=== PATIENT | female | born 1955 | race Caucasian/White ===

== ENCOUNTER 2019-12-18 14:50 | Outpatient (CLI) | payer OTHER, SELFPAY ==
--- NOTE | 2019-12-18 14:55 | MM_ITS ---
WS: [id number] BILATERAL DIGITAL SCREENING MAMMOGRAPHY WITH CAD CLINICAL INFORMATION: SCREENING HISTORY: Screening mammogram. No current complaints. COMPARISON: TECHNIQUE: Bilateral CC and MLO views. FINDINGS: Scattered fibroglandular densities bilaterally. No suspicious focal mass, asymmetry, calcifications, or architectural distortion. No evidence of malignancy. Surgical clips right axilla. A few punctate a nd lucent centered calcifications. MM/[place] [id number] IMPRESSION: BI-RADS: 2-Benign FOLLOW UP: 1 Year Follow-up Recommend return to annual screening mammography.
== END 2019-12-18 14:51 | disposition home or self-care (01) ==
LOC: RADSHAW 14:53
PROVIDERS: PCP Family Medicine; Visit Provider Family Medicine
DX: Z12.31 Encounter for screening mammogram for malignant neoplasm of breast (principal)
CPT/HCPCS: 77067

== ENCOUNTER 2020-04-10 14:41 | Outpatient (CLI) | payer OTHER, SELFPAY ==
--- NOTE | 2020-04-10 14:48 | USCV_ITS ---
Rut Sanders Age: 65 Gender: F : 1955 Exam Date: 04/10/2020 14:58 Ordering Phys: See Meza MD Technologist: Patti Chong [place] [facility] [place]: Carotid artery stenosis Risk Factors: Unknown Previous Vascular Surgery: Stent right ICA Right Brachial BP: / Left Brachial BP: / Right Left Velocity (cm/s) Spectral Plaque Velocity (cm/s) Spectral Plaque Syst/Diast Broadening Syst/Diast Broadening 102.50/23.20 Prox CCA 72.80 / 23.20 119.10/38.60 Hetro Mid CCA 102.50/ 28.70 Hetro 101.40/36.40 Hetro Distal CCA 115.80/ 30.90 Hetro 157.80/42.10 Hetro Prox ICA 152.70/ 41.00 Min Hetro 129.90/36.50 Mid ICA 120.80/ 34.20 Min 134.40/45.60 Distal ICA 127.70/ 28.80 296.20 Hetro ECA 191.40 Hetro 1.56 ICA/CCA 1.32 Not Vertebral Antegrade Visualized 41.90/ 13.70 cm/s 89.90/ 25.20 cm/s Bi Subclavian Bi 164.9 163.7 0 0 CONCLUSIONS Right ICA stenosis 50-69%. Moderate atheromatous plaque right carotid bulb/ICA. Left ICA stenosis 50-69%. Moderate atheromatous plaque left carotid bulb/ICA. Right vertebral artery not visualized Normal antegrade Doppler flow noted in the left vertebral artery. Imtiaz Salazar MD (Electronically Signed) Final Date: 10 April 2020 15:42 S
--- NOTE | 2020-04-10 15:35 | XR_ITS ---
WS: [id number] DEXA (DUAL ENERGY X-RAY ABSORPTIOMETRY) Bone mineral density was performed using a [employer] machine. HISTORY: POSTMENOPAUSAL COMPARISON: 03/25/2016 Lumbar spine BMD (L1-L4): 1.143 g/cm2 T score: -0.3 Z score: 1.2 Total hip BMD: Left: 0.970 g/cm2. T score: -0.3 Z score: 0.9 Right: 1.014 g/cm2. T score: 0.0 Z score: 1.2 10 year probability of a major osteoporotic fracture is 18%. Compared to the prior study from 03/25/2016. Lumbar spine bone mineral density has decreased by 3.7%. Bilateral hips bone mineral density has decreased by 5.1%. XR/XR DEXA axial skeleton* [id number] IMPRESSION: NORMAL BONE MINERAL DENSITY based upon the WHO classification for females. Significant decrease in bone mineral density in the lumbar spine and hips since 2016.
== END 2020-04-10 14:42 | disposition home or self-care (01) ==
LOC: RAD 14:46
PROVIDERS: PCP Family Medicine; Visit Provider Family Medicine
DX: Z78.0 Asymptomatic menopausal state (principal); I65.23 Occlusion and stenosis of bilateral carotid arteries
CPT/HCPCS: 77080; 93880

== ENCOUNTER 2021-01-08 08:55 | Outpatient (CLI) | payer OTHER, SELFPAY ==
--- NOTE | 2021-01-08 09:01 | MM_ITS ---
WS: [id number] BILATERAL DIGITAL SCREENING MAMMOGRAPHY WITH CAD CLINICAL INFORMATION: SCREENING HISTORY: Screening mammogram. No current complaints. COMPARISON: December 18, 2019 TECHNIQUE: Bilateral CC and MLO views. FINDINGS: Scattered fibroglandular densities bilaterally. Stable ovoid nodule or intramammary lymph node upper outer left breast is unchanged since 2017. Punctate calcifications left breast. Incidental tiny punct ate calcifications right breast. Surgical clips right axilla. No suspicious focal mass, asymmetry, ca lcifications, or architectural distortion. No evidence of malignancy. MM/[place] [id number] IMPRESSION: BI-RADS: 2-Benign FOLLOW UP: 1 Year Follow-up Recommend return to annual screening mammography.
== END 2021-01-08 08:56 | disposition home or self-care (01) ==
PROVIDERS: PCP Family Medicine; Visit Provider Family Medicine
DX: Z12.31 Encounter for screening mammogram for malignant neoplasm of breast (principal)
CPT/HCPCS: 77067

== ENCOUNTER 2021-03-09 07:44 | Outpatient (CLI) | payer SELFPAY ==
[2021-03-09 09:42] LABS: HF Add Manual Diff No
[2021-03-09 09:53] LABS: Basophils % 0.5 %; Eosinophils # 0.2 10^3/uL (0.0-0.8); Hematocrit 38.9 % (37.0-47.0); Hemoglobin 12.6 g/dL (11.5-15.3); Lymphocytes # 1.3 10^3/uL (0.8-4.8); Lymphocytes % 21.1 %; Mean Corpuscular HGB Conc 32.4 g/dL (30.0-36.0); Mean Corpuscular Volume 95.8 fl (81-99); Mean Platelet Volume 11.8 fL (7.4-10.4); Monocytes # 0.5 10^3/uL (0.2-0.9); Monocytes % 8.3 %; Neutrophils # 4.05 10^3/uL (1.8-7.7); Neutrophils % 66.8 %; Nucleated Red Blood Cells % 0 %; Platelet Count 137 10^3/cmm (130-400); Red Blood Count 4.06 10^6/uL (4.1-5.3); Red Cell Distribution Width 12.9 % (12.1-15.1); White Blood Count 6.1 10^3/uL (4.0-10.0)
[2021-03-09 10:16] LABS: Alanine Aminotransferase 28 U/L (0-33); Albumin Level 4.3 g/dL (3.5-5.2); Alkaline Phosphatase 29 IU/L (35-105); Anion Gap 17.5 (5-19); Aspartate Amino Transferase 28 U/L (0-32); Blood Urea Nitrogen 13 mg/dL (8-23); Carbon Dioxide 24 mmol/L (22-29); Chloride 103 mmol/L (98-107); Chol HDL Ratio 3.49 mg/dL (0.0-4.40); Cholesterol 206 mg/dL (0-200); Globulin 2.3 g/dL (1.3-4.6); Glomerular Filtration Rate 83.7 mL/min (90-130); Glucose 100 mg/dL (65-115); HDL Cholesterol 59 mg/dL (60-100); LDL Cholesterol Calculated 118 mg/dL (50-129); Osmolality Calculated 290 mOsm/kg (285-295); Potassium 4.5 mmol/L (3.5-5.1); Sodium 140 mmol/L (136-145); Thyroid Stimulating Hormone 2.16 uIU/mL (0.27-4.20); Total Bilirubin 0.5 mg/dL (0.15-1.2); Total Protein 6.6 g/dL (6.6-8.7); Triglycerides 146 mg/dL (0-150)
[2021-03-09 10:23] LABS: Estmated Average Glucose 123; Hemoglobin A1C 5.9 % (4.0-6.0)
== END 2021-03-09 07:45 | disposition home or self-care (01) ==
LOC: LAB 07:48
PROVIDERS: PCP Family Medicine; Visit Provider Dermatology
DX: Z01.89 Encounter for other specified special examinations (principal)

== ENCOUNTER → 2021-05-31 08:21 | Outpatient (BNVA) | payer OTHER, MEDICARE, SELFPAY | PROVIDERS: PCP Family Medicine; Visit Provider Surgery | DX: Z20.822 Contact with and (suspected) exposure to COVID-19 (principal); Z11.52 Encounter for screening for COVID-19 | CPT/HCPCS: 87635 ==

== ENCOUNTER 2021-06-04 06:08 | Day surgery (SDC) | payer OTHER, MEDICARE, SELFPAY ==
[2021-06-04 06:38] VITALS: BP 155/93; PULSE 66; RESP 18; TEMP 36.1; O2SAT 99
[2021-06-04] MEDS: sodium chloride 0.9% 1,000 ML 30 ML IV (06:40)
--- NOTE | 2021-06-04 06:50 | ANES.PREANE2 ---
Pre-Anesthetic Assessment Height/Weight: Weight 67.585 kg Temp Pulse Resp BP Pulse Ox 97 F L 66 18 155/93 99 06/04/21 06:38 06/04/21 06:38 06/04/21 06:38 06/04/21 06:38 06/04/21 06:38 Preop Diagnosis: diagnostic Operation Date: 06/04/21 07:30 Proposed Procedures p Colonoscopy 93379/z12.11(Not Applicable) - Romulo Saleh MD Familial anesthetic complications: none Last intake: Intake Last Liquid Date 06/03/21 Last Liquid Time 22:30 Last Solid Date 06/02/21 Last Solid Time 12:00 Social Alcohol (1x month) and No tobacco Airway Submandibular: within normal limits Cervical ROM: within normal limits Mallampati: Class I Dentition: full History/ROS No significant history except as noted Pulmonary None reported CV/HEM Hypertension None reported Hepatic None reported GI None reported Metabolic Hyperlipidemia and Thyroid Disease [facility] [place] None reported Neuropsych None reported Anesthetic Plan ASA status: 3 Anesthesia: MAC Medications/Allergies Home Medications Medication Instructions Recorded Confirmed Last Taken Type aspirin 81 mg tablet,delayed 162 mg PO DAILY tab 04/16/20 06/02/21 06/02/21 History release (Adult Aspirin Regimen) atorvastatin 10 mg tablet 10 mg PO DAILY 04/16/20 06/02/21 06/02/21 History cholecalciferol (vitamin D3) 10 10 mcg PO DAILY 04/16/20 06/02/21 06/02/21 History mcg (400 unit) capsule levothyroxine 50 mcg capsule 50 mcg PO DAILY 04/16/20 06/02/21 06/04/21 History lisinopril 10 mg tablet 10 mg PO DAILY 04/16/20 06/02/21 06/02/21 History metoprolol tartrate 50 mg tablet 50 mg PO BID 04/16/20 06/02/21 06/03/21 06:30 History Allergies Allergy/AdvReac Type Severity Reaction Status Date / Time No Known Allergies Allergy Verified 04/16/20 10:53 Current Medications Generic Name Dose Route Start Last Admin Trade Name Freq PRN Reason Stop Dose Admin Sodium Chloride 1,000 mls @ 30 mls/hr 06/04/21 06:45 06/04/21 06:40 Sodium Chloride 0.9% IV 30 mls/hr .Q24H RJ Administration PFSH Anesthesia Medical History History of common carotid artery stent placement HTN (hypertension) Hyperlipidemia Hypothyroid Lymphoma Surgical History History of appendectomy Family History Other Hypertension Social History Smoking and tobacco status: never smoked Alcohol intake: never Data Anesthesia Cardiac Studies: No Data to Display
--- NOTE | 2021-06-04 06:59 | W.PM.OPSFHP ---
Same Day Surgery H&P Indication for Procedure/HPI DATE OF PROCEDURE: June 04, 2021 CHIEF COMPLAINT/INDICATIONFOR SURGICAL PROCEDURE: screening colonoscopy PREOP DIAGNOSIS: diagnostic PLANNED PROCEDURE: Operation Date: 06/04/21 07:30 Proposed Procedures p Colonoscopy 03241/z12.11(Not Applicable) - Romulo Saleh MD Medications/Allergies* Home Medications Medication Instructions Recorded Confirmed Type aspirin 81 mg tablet,delayed 162 mg PO DAILY tab 04/16/20 06/02/21 History release (Adult Aspirin Regimen) atorvastatin 10 mg tablet 10 mg PO DAILY 04/16/20 06/02/21 History cholecalciferol (vitamin D3) 10 10 mcg PO DAILY 04/16/20 06/02/21 History mcg (400 unit) capsule levothyroxine 50 mcg capsule 50 mcg PO DAILY 04/16/20 06/02/21 History lisinopril 10 mg tablet 10 mg PO DAILY 04/16/20 06/02/21 History metoprolol tartrate 50 mg tablet 50 mg PO BID 04/16/20 06/02/21 History Allergies/Adverse Reactions Allergy/AdvReac Type Severity Reaction Status Date / Time No Known Allergies Allergy Verified 04/16/20 10:53 Current Medications: Generic Name Dose Route Start Last Admin Trade Name Freq PRN Reason Stop Dose Admin Sodium Chloride 1,000 mls @ 30 mls/hr 06/04/21 06:45 06/04/21 06:40 Sodium Chloride 0.9% IV 30 mls/hr .Q24H RJ Administration Pertinent History/Comorbid Conditions* Medical History (Updated 04/20/20 @ 10:46 by Mabel Tom DO) History of common carotid artery stent placement HTN (hypertension) Hyperlipidemia Hypothyroid Lymphoma Surgical History (Updated 04/20/20 @ 10:46 by Mabel Tom DO) History of appendectomy Family History (Updated 04/16/20 @ 10:59 by Deyanira Faye LPN) Hypertension Social History Smoking and tobacco status: never smoked Alcohol intake: never Pertinent Exam Findings alert, oriented x 3 and regular rate & rhythm Recommendations Surgery/Procedure today Coding Level of Care Code 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
[2021-06-04 07:22] VITALS: BP 104/50; PULSE 62; RESP 16; TEMP 36.1; O2SAT 100
[2021-06-04 07:30] VITALS: BP 121/58; PULSE 61; RESP 18; O2SAT 100
--- NOTE | 2021-06-04 13:35 | ANE.PACU2 ---
Inpatient post-anesthesia follow up: Airway intact: Yes Vital signs: Temperature 97.0 F Pulse Rate 61 Respiratory Rate 18 Blood Pressure 121/58 Pulse Oximetry 100 Oxygen Delivery Me thod Room Air Oxygen Flow Rate 3 Fraction of Inspir ed Oxygen Hydration adequate: Yes Nausea and vomiting: No Pain level: 1 Mental status: Baseline
== END 2021-06-04 07:41 | disposition home or self-care (01) ==
PROVIDERS: PCP Family Medicine; Visit Provider Surgery
PROC: 0DJD8ZZ Inspection of Lower Intestinal Tract, Via Natural or Artificial Opening Endoscopic (ICD-10-PCS; CPT 45378; principal; 2021-06-04 07:30)
DX: Z12.11 Encounter for screening for malignant neoplasm of colon (principal); K57.30 Diverticulosis of large intestine without perforation or abscess without bleeding; Z79.82 Long term (current) use of aspirin; I10 Essential (primary) hypertension; E78.5 Hyperlipidemia, unspecified; E03.9 Hypothyroidism, unspecified
CPT/HCPCS: G0121; J2704; J7030

== ENCOUNTER 2021-07-28 13:59 | Outpatient (CLI) | payer MEDICARE, SELFPAY ==
--- NOTE | 2021-07-28 14:03 | USCV_ITS ---
Rut Sanders Age: 66 Gender: F : 1955 Exam Date: 07/28/2021 14:22 Ordering Phys: See Meza MD Technologist: LENNY Exam Location: [facility] – [place] Indication: EVALUATE FOR CAROTID STENOSIS, H/O RIGHT STENT Risk Factors: Previous Vascular Surgery: Right Brachial BP: / Left Brachial BP: / Right Left Velocity (cm/s) Spectral Plaque Velocity (cm/s) Spectral Plaque Syst/Diast Broadening Syst/Diast Broadening 74.30/ 23.10 Prox CCA 84.30 / 25.00 121.30/37.50 Mid CCA 110.40/ 32.90 130.10/38.60 Distal CCA 122.30/ 36.80 133.60/37.30 Prox ICA 107.80/ 28.90 115.70/35.50 Mid ICA 138.00/ 36.80 178.70/51.30 Distal ICA 111.70/ 32.90 150.70 ECA 153.80 1.37 ICA/CCA 1.13 Antegrade Vertebral Antegrade 61.20/ 18.30 cm/s 128.6/ 48.10 cm/s 0 Tri Subclavian Tri 164.7 139.8 0 0 CONCLUSIONS Right ICA stenosis 50-69% at the lower end of the range. Stent appears patent. Left ICA stenosis <50%. Moderate calcified atheromatous plaque left carotid bulb/ICA. Normal antegrade Doppler flow noted in the right vertebral artery. Normal antegrade Doppler flow noted in the left vertebral artery. Imtiaz Salazar MD (Electronically Signed) Final Date: 28 Jul 2021 15:02 S
== END 2021-07-28 14:00 | disposition home or self-care (01) ==
LOC: RAD 14:00
PROVIDERS: PCP Family Medicine; Visit Provider Family Medicine
DX: I65.23 Occlusion and stenosis of bilateral carotid arteries (principal)
CPT/HCPCS: 93880

== ENCOUNTER 2021-10-12 07:42 | Outpatient (CLI) | payer MEDICARE, SELFPAY ==
[2021-10-12 08:25] LABS: Basophils % 0.6 %; Eosinophils # 0.2 10^3/uL (0.0-0.8); Hemoglobin 12.8 g/dL (11.5-15.3); Lymphocytes # 1.4 10^3/uL (0.8-4.8); Lymphocytes % 26.2 %; Mean Corpuscular Hemoglobin 31.5 pg (28.0-34.0); Mean Corpuscular Volume 98.5 fl (81-99); Mean Platelet Volume 11.4 fL (7.4-10.4); Monocytes # 0.5 10^3/uL (0.2-0.9); Monocytes % 9.6 %; Neutrophils # 3.11 10^3/uL (1.8-7.7); Neutrophils % 58.7 %; Nucleated Red Blood Cells % 0 %; Platelet Count 146 10^3/cmm (130-400); Red Blood Count 4.06 10^6/uL (4.1-5.3); Red Cell Distribution Width 13.2 % (12.1-15.1); White Blood Count 5.3 10^3/uL (4.0-10.0)
[2021-10-12 08:48] LABS: Alanine Aminotransferase 26 U/L (0-33); Albumin Level 4.6 g/dL (3.5-5.2); Alkaline Phosphatase 36 IU/L (35-105); Aspartate Amino Transferase 29 U/L (0-32); Blood Urea Nitrogen 20 mg/dL (8-23); Calcium 9.5 mg/dL (8.5-10.5); Carbon Dioxide 27 mmol/L (22-29); Chloride 102 mmol/L (98-107); Globulin 2.4 g/dL (1.3-4.6); Glomerular Filtration Rate 71.8 mL/min (90-130); Glucose 112 mg/dL (65-115); Osmolality Calculated 291 mOsm/kg (285-295); Sodium 139 mmol/L (136-145); Total Bilirubin 0.4 mg/dL (0.15-1.2)
[2021-10-12 08:49] LABS: Lactate Dehydrogenase 308 U/L (135-214)
== END 2021-10-12 07:43 | disposition home or self-care (01) ==
LOC: LAB 07:47
PROVIDERS: PCP Family Medicine; Visit Provider Internal Medicine Medical Oncology
DX: C82.90 Follicular lymphoma, unspecified, unspecified site (principal)
CPT/HCPCS: 80053; 83615; 85025

== ENCOUNTER → 2021-11-02 07:56 | Outpatient (BNVA) | payer MEDICARE, SELFPAY | PROVIDERS: Visit Provider Podiatrist Foot & Ankle Surgery | DX: M19.071 Primary osteoarthritis, right ankle and foot (principal); M79.671 Pain in right foot; M76.71 Peroneal tendinitis, right leg | CPT/HCPCS: 73630; 99204 ==

== ENCOUNTER → 2021-12-23 15:28 | Outpatient (BNVA) | payer MEDICARE, SELFPAY | PROVIDERS: Visit Provider Podiatrist Foot & Ankle Surgery | DX: M76.71 Peroneal tendinitis, right leg (principal) | CPT/HCPCS: 99213; 99214 ==

== ENCOUNTER 2021-12-24 08:11 | Outpatient (CLI) | payer MEDICARE, SELFPAY | END 2021-12-24 08:12 | disposition home or self-care (01) | LOC: SPT 08:13 | PROVIDERS: Visit Provider Podiatrist Foot & Ankle Surgery | DX: Z46.89 Encounter for fitting and adjustment of other specified devices (principal); M79.673 Pain in unspecified foot | CPT/HCPCS: L4397 ==

== ENCOUNTER 2022-01-12 15:22 | Outpatient (CLI) | payer MEDICARE, SELFPAY ==
--- NOTE | 2022-01-12 15:29 | MM_ITS ---
WS: [id number] BILATERAL 3D TOMOSYNTHESIS DIGITAL SCREENING MAMMOGRAPHY WITH CAD CLINICAL INFORMATION: SCREEN HISTORY: Screening mammogram. No current complaints. COMPARISON: January 08, 2021 TECHNIQUE: Bilateral CC and MLO views. FINDINGS: Scattered fibroglandular densities bilaterally. No suspicious focal mass, asymmetry, calcifications, or architectural distortion. No evidence of malignancy. Punctate and lucent centered calcifications. MM/[place] [id number] IMPRESSION: BI-RADS: 2-Benign FOLLOW UP: 1 Year Follow-up Recommend return to annual screening mammography.
== END 2022-01-12 15:23 | disposition home or self-care (01) ==
PROVIDERS: Visit Provider Family Medicine
DX: Z12.31 Encounter for screening mammogram for malignant neoplasm of breast (principal)
CPT/HCPCS: 77063; 77067

== ENCOUNTER → 2022-03-21 11:27 | Outpatient (BNVA) | payer MEDICARE, SELFPAY | PROVIDERS: Visit Provider Registered Nurse Neonatal Intensive Care | DX: J02.9 Acute pharyngitis, unspecified (principal); H66.001 Acute suppurative otitis media without spontaneous rupture of ear drum, right ear | CPT/HCPCS: 87071; 87880 ==

== ENCOUNTER 2022-04-26 07:37 | Outpatient (CLI) | payer MEDICARE, SELFPAY ==
--- NOTE | 2022-04-26 07:30 | CT_ITS ---
WS: [id number] CT NECK TECHNIQUE: Contrast-enhanced CT of the neck with coronal and sagittal reformatted images. CLINICAL INFORMATION: neck mass, hx of lymphoma and radiation. COMPARISON: None. DLP: 214.[address] scans at [facility] [place] use at least one of these dose optimization techniques: automated e xposure control; mA and/or kV adjustment per patient size (includes targeted exams where dose is matc hed to clinical indication); or iterative reconstruction. FINDINGS: Dental artifact degrades some images at the tongue base. Tongue base is otherwise normal in appearanc e. Atrophic RIGHT submandibular and RIGHT parotid glands may be due to partial resection or radiation therapy. Normal LEFT parotid and submandibular gland. Normal posterior nasopharynx. Normal paraphary ngeal fat. No evidence of supraglottic or glottic mass. Normal vallecula and piriform sinuses. No cervical lymphadenopathy. RIGHT carotid stent is patent. Paranasal sinuses are well aerated. Mastoid air cells well aerated. Moderate spondylitic changes cerv ical spine. Disc space narrowing worse at C4-C5 C5-C6 and C6-C7. A few small RIGHT thyroid nodules th e largest measuring 4 mm. Tiny nodule measuring 3 mm RIGHT lung apex. CT/CT neck w con* [id number] IMPRESSION: 1. Tongue base is normal in appearance. Normal posterior nasopharynx. 2. No evidence of supraglottic or glottic mass. 3. Normal parapharyngeal fat. 4. No cervical lymphadenopathy. 5. A few small RIGHT thyroid nodules. 6. RIGHT carotid stent appears patent. 7. No other suspicious findings.
[2022-04-26 09:25] LABS: Blood Urea Nitrogen 18 mg/dL (8-23); Glomerular Filtration Rate 55.3 mL/min (90-130)
[2022-04-26] MEDS: iohexol 350 mg/mL 500 mL Btl (per mL) IV (09:45)
== END 2022-04-26 07:38 | disposition home or self-care (01) ==
LOC: RAD 07:41
PROVIDERS: PCP Family Medicine; Visit Provider Family Medicine
DX: R22.1 Localized swelling, mass and lump, neck (principal)
CPT/HCPCS: 70491; 82565; 84520; Q9967

== ENCOUNTER 2022-08-29 06:49 | Outpatient (CLI) | payer MEDICARE, SELFPAY ==
[2022-08-29 07:53] VITALS: BMI 27.3
--- NOTE | 2022-08-29 07:55 | NMCV_ITS ---
NM maco perf SPECT r/s* [id number] Rut Sanders Age: 67 Gender: F : 1955 Exam Date: 08/29/2022 07:55 Ordering Phys: See Meza MD Technologist: BILLY Canseco Exam Location: [facility] Indications: CHEST PAIN STRESS TEST [facility] IMAGE PROTOCOL Rest/Stress 1 Exercise Day Radiopharmaceutical Dose (mCi) Administration Site Administered by Rest: Tc-99m 10.9 IV BILLY Ham Sestamibi Stress:Tc-99m 32.4 IV BILLY Ham Sestamibi Rest: 29-Aug-2022 60 Discovery 630 Stress: 29-Aug-2022 30 Discovery 630 Radiopharmaceutical was injected at 100% maximum heart rate. Images obtained in supine and prone position. SPECT RESULTS Technical Quality: Excellent Raw Data Analysis: Normal Image Corrections: No attenuation or motion correction applied Summed Stress Score: 0 Summed Rest Score: 6 Summed Difference Score: 0 PERFUSION FINDINGS SPECT images demonstrate homogeneous tracer distribution throughout the myocardium. FUNCTIONAL RESULTS (calculated via Gated SPECT) Stress Image LV EF (%): 87 Stress EDV (mL):67 TID: 0.78 Stress ESV (mL):9 FUNCTIONAL FINDINGS: There is normal left ventricular systolic function. IMPRESSIONS 1. Normal myocardial perfusion imaging with no evidence of ischemia 2. LV systolic function is normal Cristopher Armstrong MD (Electronically Signed) Final Date: 03 September 2022 09:20 S
--- NOTE | 2022-08-29 07:55 | ECG_ITS ---
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 Interpretive Statements NAME OF STUDY: EXERCISE SESTAMIBI STRESS TEST INDICATION: [Chest Pain, ] EXERCISE DATA: The patient was exercised by Kike protocol. Baseline heart rate was 67 beats per minute. Baseline blood pressure was 153/81 millimeters of mercury. Target heart rate was 130 beats per minute. Maximum heart rate achieved was 162 which was 124% of the target heart rate. Maximum blood pressure was 187/79 millimeters of mercury. Total exercise time was 8 minutes and 39 seconds. Maximum METs achieved was 10.2. The reason for ending the test was maximal effort achieved. The patient complained of shortness of breath during the stress test, which then resolved at the end of the test. ELECTROCARDIOGRAM: BASELINE: Showed sinus rhythm, normal axis, no significant ST-T changes at the baseline noted. [] EXERCISE: At the peak exercise level, [] borderline ST depressions are seen in the inferior leads. RECOVERY: During the recovery period, heart rate dropped appropriately. No significant ST-T changes in the recovery suggestive of ischemia noted. [] CONCLUSION: 1. Exercise capacity is good 2. Heart rate response was appropriate 3. Blood pressure response was appropriate 4. Symptoms not suggestive of ischemia. 5. Electrocardiogram portion of the stress test has borderline 1mm ST depressions in inferior leads and leads V5-V6. [place] can not be ruled out. Assess with imaging component of the stress test 6. Nuclear scan will be documented separately. Electronically Signed On 09-13-2022 17:06:17 CDT by Cristopher Armstrong M.D. [id number]
[2022-08-29 09:02] VITALS: BP 143/66; PULSE 96
== END 2022-08-29 06:50 | disposition home or self-care (01) ==
LOC: CDL 06:50
PROVIDERS: PCP Family Medicine; Visit Provider Family Medicine
DX: R07.9 Chest pain, unspecified (principal)
CPT/HCPCS: 36415; 78452; 93017; A9500

== ENCOUNTER 2022-10-21 07:44 | Outpatient (CLI) | payer MEDICARE, SELFPAY ==
--- NOTE | 2022-10-21 | CT_ITS ---
WS: [id number] CTA NECK TECHNIQUE: Contrast enhanced CTA of the neck with coronal and sagittal reformatted images and maximum intensity projection (MIP) images. NASCET criteria utilized. CLINICAL INFORMATION: f/u on carotid stenosis COMPARISON: CT 2012 DLP: 203.[address] scans at [facility] use at least one of these dose optimization techniques: automated e xposure control; mA and/or kV adjustment per patient size (includes targeted exams where dose is matc hed to clinical indication); or iterative reconstruction. FINDINGS: RIGHT: RIGHT common carotid artery is patent. Mild calcified atheromatous plaque RIGHT carotid bulb e xtending into the ICA. RIGHT ICA stent appears patent with in-stent stenosis distally measuring 47% p ercent. RIGHT ICA is patent to the skull base. LEFT: LEFT common carotid artery is patent. Moderate calcified atheromatous plaque LEFT carotid bulb extending into the ICA. LEFT ICA stenosis measures 61%. LEFT ICA is patent to the skull base. LEFT vertebral artery is patent. LEFT vertebral artery is patent to the basilar junction. RIGHT verte bral artery is occluded at the origin. Reconstitution of a tiny intracranial lateral segment. Proximal basilar artery is patent. [place] not included on this study.Paranasal sinuses and mastoid air cells well aerated. Mild spondylitic changes cervical spine. CT/CT angio neck [id number] IMPRESSION: 1. RIGHT proximal ICA stent appears patent with mild in-stent restenosis dista lly measuring approximately 47%. RIGHT ICA remains patent to the skull base. 2. Moderate calcified atheromatous plaque LEFT carotid bulb with approximately 61% LEFT ICA stenosis progressed compared 2012 3. LEFT dominant vertebral artery. RIGHT vertebral artery is occluded at the o rigin unchanged from previous with a tiny reconstituted intracranial collateral component.
[2022-10-21 08:18] LABS: Basophils % 0.5 %; Eosinophils # 0.2 10^3/uL (0.0-0.8); Eosinophils % 3.9 %; Hematocrit 36.8 % (37.0-47.0); Hemoglobin 11.9 g/dL (11.5-15.3); Lymphocytes # 1.3 10^3/uL (0.8-4.8); Lymphocytes % 30.4 %; Mean Corpuscular HGB Conc 32.3 g/dL (30.0-36.0); Mean Corpuscular Hemoglobin 31.5 pg (28.0-34.0); Mean Corpuscular Volume 97.4 fl (81-99); Mean Platelet Volume 11.2 fL (7.4-10.4); Monocytes # 0.4 10^3/uL (0.2-0.9); Monocytes % 9.8 %; Neutrophils # 2.44 10^3/uL (1.8-7.7); Neutrophils % 55.2 %; Nucleated Red Blood Cells % 0 %; Platelet Count 122 10^3/cmm (130-400); Red Blood Count 3.78 10^6/uL (4.1-5.3); Red Cell Distribution Width 13.4 % (12.1-15.1); White Blood Count 4.4 10^3/uL (4.0-10.0)
[2022-10-21] MEDS: iohexol 350 mg/mL 500 mL Btl (per mL) IV (08:37)
[2022-10-21 08:38] LABS: Alanine Aminotransferase 14 U/L (0-33); Albumin Level 4.1 g/dL (3.5-5.2); Alkaline Phosphatase 28 U/L (35-105); Anion Gap 12.8 (5-19); Aspartate Amino Transferase 23 U/L (0-32); Blood Urea Nitrogen 21 mg/dL (8-23); Calcium 9.6 mg/dL (8.5-10.5); Carbon Dioxide 26 mmol/L (22-29); Chloride 103 mmol/L (98-107); Globulin 2.5 g/dL (1.3-4.6); Glomerular Filtration Rate 62.5 mL/min (90-130); Glucose 112 mg/dL (65-115); Lactate Dehydrogenase 220 U/L (135-214); Osmolality Calculated 288 mOsm/kg (285-295); Potassium 4.8 mmol/L (3.5-5.1); Sodium 137 mmol/L (136-145); Total Bilirubin 0.4 mg/dL (0.15-1.2); Total Protein 6.6 g/dL (6.6-8.7)
== END 2022-10-21 07:45 | disposition home or self-care (01) ==
PROVIDERS: PCP Family Medicine; Visit Provider Family Medicine
DX: I65.23 Occlusion and stenosis of bilateral carotid arteries (principal)
CPT/HCPCS: 36415; 70498; 80053; 83615; 85025; Q9967

== ENCOUNTER → 2022-12-23 08:04 | Outpatient (BNVA) | payer MEDICARE, SELFPAY | PROVIDERS: PCP Family Medicine; Visit Provider Nurse Practitioner Family | DX: L82.1 Other seborrheic keratosis (principal); L81.4 Other melanin hyperpigmentation; L57.8 Other skin changes due to chronic exposure to nonionizing radiation; B07.8 Other viral warts; L29.8 Other pruritus; L53.8 Other specified erythematous conditions; R20.8 Other disturbances of skin sensation; L57.0 Actinic keratosis | CPT/HCPCS: 17003; 17000; 17110; 99213 ==

== ENCOUNTER 2023-02-01 07:20 | Outpatient (CLI) | payer MEDICARE, SELFPAY ==
--- NOTE | 2023-02-01 07:34 | MM_ITS ---
WS: [id number] BILATERAL SCREENING DIGITAL TOMOSYNTHESIS MAMMOGRAM WITH CAD HISTORY: SCREENING COMPARISON: 01/12/2022, 01/08/2021, 09/03/2018 Bilateral CC and MLO views with tomosynthesis and synthetic mammography submitted. Computer aided det ection analyzed. Breast composition: There are scattered areas of fibroglandular density. No suspicious masses, microc alcifications or architectural distortion. Stable calcifications and asymmetries over multiple prior years. Numerous surgical clips are noted in the upper outer quadrant of the RIGHT breast. IMPRESSION: MM/[place] [id number] BI-RADS: 2-Benign FOLLOW UP: 1 Year Follow-up
== END 2023-02-01 07:21 | disposition home or self-care (01) ==
PROVIDERS: PCP Family Medicine; Visit Provider Family Medicine
DX: Z12.31 Encounter for screening mammogram for malignant neoplasm of breast (principal)
CPT/HCPCS: 77063; 77067

== ENCOUNTER 2023-03-08 09:22 | Outpatient (CLI) | payer MEDICARE, SELFPAY ==
--- NOTE | 2023-03-08 15:30 | XR_ITS ---
WS: [id number] SCREENING DEXA SCAN [employer] CLINICAL INFORMATION: screening COMPARISON: 2020 FINDINGS: The L1-L4 bone mineral density measures 1.345 g/cm2. This corresponds to a T score score of 1.4 and Z score of 2.8. Left femoral neck bone mineral density measures 0.997 g/cm2. This corresponds to a T score of -0.1 an d Z score of 1.1. Right femoral neck bone mineral density measures 1.002 g/cm2. This corresponds to a T score 0.0of and Z score of 1.2. Mean femoral neck bone mineral density measures 1.000 g/cm2. This corresponds to a T score of -0.1 an d Z score of 1.2. IMPRESSION: Normal bone mineralization. Patient's FRAX calculated 10 year probability for major osteoporotic fracture is 16.4% and osteoporot ic hip fracture is 2.1%. Bone mineral density lumbar spine increased 17.7% since 2020 Bone mineral density femoral necks increased 0.8% since 2020
== END 2023-03-08 09:23 | disposition home or self-care (01) ==
LOC: RAD 09:23
PROVIDERS: PCP Family Medicine; Visit Provider Family Medicine
DX: Z13.820 Encounter for screening for osteoporosis (principal)
CPT/HCPCS: 77080

== ENCOUNTER 2023-03-09 10:55 | Outpatient (CLI) | payer MEDICARE, SELFPAY ==
[2023-03-09 16:20] LABS: Basophils % 0.6 %; Eosinophils # 0.2 10^3/uL (0.0-0.8); Eosinophils % 3.2 %; Hematocrit 37.3 % (36-47); Lymphocytes # 1.6 10^3/uL (0.8-4.8); Lymphocytes % 29.3 %; Mean Corpuscular HGB Conc 33.2 g/dL (30-55); Mean Corpuscular Hemoglobin 31.6 pg (27-33); Mean Corpuscular Volume 94.9 fl (85-98); Mean Platelet Volume 10.7 fL (7.4-10.4); Monocytes # 0.5 10^3/uL (0.2-0.9); Monocytes % 9.3 %; Neutrophils % 57.4 %; Nucleated Red Blood Cells % 0 %; Platelet Count 135 10^3/cmm (157-399); Red Blood Count 3.93 10^6/uL (3.85-5.65); Red Cell Distribution Width 13.2 % (12.1-15.1); White Blood Count 5.39 10^3/uL (3.29-11.43)
[2023-03-09 16:53] LABS: 25 Hydroxy Vitamin D 44 ng/mL (30-100); Alanine Aminotransferase 20 U/L (0-33); Albumin Level 4.4 g/dL (3.5-5.2); Alkaline Phosphatase 30 U/L (35-105); Anion Gap 14.4 (5-19); Aspartate Amino Transferase 25 U/L (0-32); Blood Urea Nitrogen 21 mg/dL (8-23); Calcium 9.6 mg/dL (8.5-10.5); Carbon Dioxide 26 mmol/L (22-29); Chloride 104 mmol/L (98-107); Cholesterol 222 mg/dL (0-200); Globulin 2.5 g/dL (1.3-4.6); Glomerular Filtration Rate 62.3 mL/min (90-130); Glucose 94 mg/dL (65-115); HDL Cholesterol 60 mg/dL (60-100); LDL Cholesterol Calculated 128 mg/dL (50-129); LDL HDL Ratio 2.13 RATIO (0.00-3.22); Osmolality Calculated 293 mOsm/kg (285-295); Potassium 4.4 mmol/L (3.5-5.1); Sodium 140 mmol/L (136-145); Total Bilirubin 0.7 mg/dL (0.15-1.2); Total Protein 6.9 g/dL (6.6-8.7); Triglycerides 169 mg/dL (0-150)
== END 2023-03-09 10:56 | disposition home or self-care (01) ==
PROVIDERS: PCP Family Medicine; Visit Provider Family Medicine
DX: E55.9 Vitamin D deficiency, unspecified (principal); E78.5 Hyperlipidemia, unspecified; E03.9 Hypothyroidism, unspecified; I10 Essential (primary) hypertension
CPT/HCPCS: 80053; 80061; 82306; 84443; 85025

== ENCOUNTER 2023-10-18 13:27 | Oncology outpatient (recurring) (ONCR) | payer MEDICARE, SELFPAY ==
[2023-10-18 14:05] LABS: Basophils % 0.8 %; Eosinophils # 0.2 10^3/uL (0.0-0.8); Eosinophils % 4.1 %; Hematocrit 37.8 % (36-47); Lymphocytes # 1.6 10^3/uL (0.8-4.8); Mean Corpuscular HGB Conc 33.1 g/dL (30-55); Mean Corpuscular Hemoglobin 32.1 pg (27-33); Mean Corpuscular Volume 96.9 fl (85-98); Mean Platelet Volume 11.3 fL (7.4-10.4); Monocytes # 0.6 10^3/uL (0.2-0.9); Neutrophils # 2.34 10^3/uL (1.8-7.7); Neutrophils % 48.7 %; Nucleated Red Blood Cells % 0 %; Platelet Count 135 10^3/cmm (157-399); Red Cell Distribution Width 12.7 % (12.1-15.1); White Blood Count 4.82 10^3/uL (3.29-11.43)
[2023-10-18 14:27] LABS: Alanine Aminotransferase 19 U/L (0-33); Albumin Level 4.4 g/dL (3.5-5.2); Alkaline Phosphatase 32 U/L (35-105); Anion Gap 16.8 (5-19); Aspartate Amino Transferase 24 U/L (0-32); Blood Urea Nitrogen 22 mg/dL (8-23); Calcium 9.5 mg/dL (8.5-10.5); Carbon Dioxide 24 mmol/L (22-29); Chloride 104 mmol/L (98-107); Glomerular Filtration Rate 55.1 mL/min (90-130); Glucose 94 mg/dL (65-115); Lactate Dehydrogenase 272 U/L (135-214); Osmolality Calculated 293 mOsm/kg (285-295); Potassium 4.8 mmol/L (3.5-5.1); Sodium 140 mmol/L (136-145); Total Bilirubin 0.4 mg/dL (0.15-1.2); Total Protein 7.4 g/dL (6.6-8.7)
== END 2023-10-25 23:59 | disposition home or self-care (01) ==
PROVIDERS: PCP Family Medicine; Visit Provider Internal Medicine Medical Oncology
DX: C82.90 Follicular lymphoma, unspecified, unspecified site (principal)
CPT/HCPCS: 36415; 80053; 83615; 85025

== ENCOUNTER 2023-12-05 14:49 | Outpatient (CLI) | payer MEDICARE, SELFPAY ==
--- NOTE | 2023-12-05 15:00 | CTR_ITS ---
PROCEDURE INFORMATION: Exam: CTA Neck With Contrast Exam date and time: 12/05/2023 3:16 PM Age: 68 years old Clinical indication: Condition or disease; Other: Carotid artery stenosis; Prior surgery; Surgery date: 6+ months; Surgery type: RT carotid stents; Patient HX: HX of non hodgkins lymphoma TECHNIQUE: Imaging protocol: Computed tomographic angiography of the neck with contrast. Exam focused on the cervical segments of the vasculature. 3D rendering (Not supervised by radiologist): MIP and/or 3D reconstructed images were created by the technologist. Radiation optimization: All CT scans at this facility use at least one of these dose optimization techniques: automated exposure control; mA and/or kV adjustment per patient size (includes targeted exams where dose is matched to clinical indication); or iterative reconstruction. Contrast material: OMNI 350; Contrast volume: 100 ml; Contrast route: INTRAVENOUS (IV); COMPARISON: CT angio neck [id number] 10/21/2022 8:42 AM RADIATION DOSE METRICS: Total DLP (mGy-cm): 227.44 FINDINGS: Right common carotid artery: Right carotid stent at the carotid bulb. No dissection or occlusion. Right internal carotid artery: Patent right carotid stent at the origin. No dissection or occlusion. Right external carotid artery: No occlusion or stenosis of the origin. Left common carotid artery: Mild stenosis at the carotid bulb. No dissection or occlusion. Left internal carotid artery: Mild stenosis at the origin. No dissection or occlusion. Left external carotid artery: No occlusion or stenosis of the origin. 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 Left vertebral artery: No stenosis. No dissection or occlusion. Lymph nodes: Partially visualized hilar and mediastinal adenopathy. Soft tissues: Normal. No significant soft tissue swelling. Bones/joints: No acute fracture. CT/CT angio neck [id number] IMPRESSION: 1. Patent right carotid stent. 2. 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 3. Mild stenosis at the left common carotid bulb and origin of the left internal carotid artery. 4. Partially visualized hilar and mediastinal adenopathy. REFERENCES: NASCET CRITERIA. The degree of stenosis in the cervical segment of the internal carotid artery is based on NASCET criteria. Normal is no stenosis. Mild is less than 50% stenosis. Moderate is 50-69% stenosis. Severe is 70% to 99% stenosis. Total occlusion is no detectable patent lumen.
[2023-12-05] MEDS: iohexol 350 mg/mL 500 mL Btl (per mL) IV (15:45)
== END 2023-12-05 14:50 | disposition home or self-care (01) ==
LOC: RAD 14:49
PROVIDERS: PCP Family Medicine; Visit Provider Family Medicine
DX: I65.01 Occlusion and stenosis of right vertebral artery (principal); R59.0 Localized enlarged lymph nodes; Z95.828 Presence of other vascular implants and grafts; Z85.72 Personal history of non-Hodgkin lymphomas
CPT/HCPCS: 70498

== ENCOUNTER → 2023-12-25 08:40 | Outpatient (BNVA) | payer MEDICARE, SELFPAY | PROVIDERS: PCP Family Medicine; Visit Provider Nurse Practitioner Family | DX: L57.0 Actinic keratosis (principal); L82.0 Inflamed seborrheic keratosis; L82.1 Other seborrheic keratosis; L81.4 Other melanin hyperpigmentation; L57.8 Other skin changes due to chronic exposure to nonionizing radiation | CPT/HCPCS: 17000; 17110; 99213 ==

== ENCOUNTER 2024-02-12 14:54 | Outpatient (CLI) | payer MEDICARE, SELFPAY ==
--- NOTE | 2024-02-12 14:57 | MM_ITS ---
WS: [id number] BILATERAL 3D TOMOSYNTHESIS DIGITAL SCREENING MAMMOGRAPHY WITH CAD CLINICAL INFORMATION: SCREENING HISTORY: Screening mammogram. No current complaints. COMPARISON: 2022 TECHNIQUE: Bilateral CC and MLO views. FINDINGS: Scattered fibroglandular densities bilaterally. No suspicious focal mass, asymmetry, calcifications, or architectural distortion. No evidence of malignancy. Coarse calcifications LEFT breast. Surgical c lips RIGHT axilla MM/MM scr BI tomosynthesis [id number] IMPRESSION: DENSITY: There are scattered areas of fibroglandular density. BI-RADS: 2 - Benign. FOLLOW UP: 1 Year Follow-up Recommend return to annual screening mammography.
== END 2024-02-12 14:55 | disposition home or self-care (01) ==
LOC: RAD 14:54
PROVIDERS: PCP Family Medicine; Visit Provider Family Medicine
DX: Z12.31 Encounter for screening mammogram for malignant neoplasm of breast (principal); R92.323 Mammographic fibroglandular density, bilateral breasts; R92.1 Mammographic calcification found on diagnostic imaging of breast
CPT/HCPCS: 77063; 77067

== ENCOUNTER 2024-06-04 14:06 | Outpatient (CLI) | payer SELFPAY ==
[2024-06-04 15:07] LABS: Thyroid Stimulating Hormone 1.84 uIU/mL (0.27-4.20)
== END 2024-06-04 14:07 | disposition home or self-care (01) ==
LOC: ONCMED 14:26 → LAB 14:29
PROVIDERS: PCP Family Medicine; Visit Provider Dermatology
DX: E03.9 Hypothyroidism, unspecified (principal)
CPT/HCPCS: 36415; 84443

== ENCOUNTER 2024-07-08 07:38 | Outpatient (CLI) | payer MEDICARE, SELFPAY ==
[2024-07-08 07:58] VITALS: BMI 28.9
--- NOTE | 2024-07-08 08:12 | ECG_ITS ---
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 Baseline heart rate was 73 beats per minute. Baseline blood pressure was 190/94 millimeters of mercury. Target heart rate was 151 beats per minute. Maximum heart rate achieved was 157, which was 103 % of the target heart rate. Maximum blood pressure was 211/96 millimeters of mercury. Total exercise time was 8 minutes 4 seconds. Maximum METs achieved was 10.2, maximum VO2 was 35.7. The reason for ending the test was maximum effort achieved. The patient complained of shortness of breath during the stress test, which then resolved at the end of the test. ELECTROCARDIOGRAM: BASELINE: Showed sinus rhythm, normal axis, no significant ST-T changes at the baseline noted. EXERCISE: At the peak exercise level, significant inferolateral noted ST-T changes suggestive of ischemia noted. PVC noted RECOVERY: During the recovery period, heart rate dropped appropriately. Multiple PACs noted, inferolateral ST???the changes almost normalized by the end of eighth minute of recovery CONCLUSION: 1. Exercise capacity good. 2. Heart rate response was appropriate. 3. Blood pressure response was hypertensive. 4. Symptoms not suggestive of ischemia. 5. Electrocardiogram portion of the stress test was suggestive of ischemia. Electronically Signed On 07-08-2024 19:42:32 CDT by REYMUNDO YOUNGBLOOD [email or web address] [id number]
--- NOTE | 2024-07-08 08:13 | NMCV_ITS ---
NM maco perf SPECT r/s* [id number] Rut Sanders Age: 69 Gender: F : 1955 Exam Date: 07/08/2024 09:01 Ordering Phys: See Meza MD Technologist: BILLY Logan Exam Location: [facility] Indications: cp STRESS TEST Please see separate stress test report in [facility] for full findings IMAGE PROTOCOL Rest/Stress 1 Exercise Day Radiopharmaceutical Dose (mCi) Administration Site Administered by Rest: Tc-99m 10.7 IV Medina Rocah, ORTHODONTIST ASSISTANT Sestamibi Stress:Tc-99m 32.7 IV Medina Rocha, ORTHODONTIST ASSISTANT Sestamibi Rest: 08-Jul-2024 60 Discovery 630 Stress: 08-Jul-2024 15 Discovery 630 Radiopharmaceutical was injected at 100% maximum heart rate. Images obtained in supine and prone position. SPECT RESULTS Technical Quality: Good Raw Data Analysis: Normal Image Corrections: No attenuation or motion correction applied Summed Stress Score: 1 Summed Rest Score: 10 Summed Difference Score: 0 PERFUSION FINDINGS There is reduced radiotracer uptake seen in apical, apical anterior and apical inferior schulz that which improves on prone imaging. This is consistent with attenuation artifact. No evidence of ischemia. FUNCTIONAL RESULTS (calculated via Gated SPECT) Stress Image LV EF (%): 71 Stress EDV (mL):70 TID: 0.95 Stress ESV (mL):20 FUNCTIONAL FINDINGS: There is normal left ventricular systolic function. IMPRESSIONS 1. Attenuation artifact seen in apical, apical anterior and apical inferior schulz. No evidence of ischemia 2. LV systolic function is normal Cristopher Armstrong MD (Electronically Signed) Final Date: 08 July 2024 17:15 S
[2024-07-08 09:53] VITALS: BP 178/78; PULSE 100
== END 2024-07-08 07:39 | disposition home or self-care (01) ==
PROVIDERS: PCP Family Medicine; Visit Provider Family Medicine
DX: R07.9 Chest pain, unspecified (principal); R93.1 Abnormal findings on diagnostic imaging of heart and coronary circulation
CPT/HCPCS: 36415; 78452; 93017; A9500

== ENCOUNTER 2024-10-08 11:22 | Oncology outpatient (recurring) (ONCR) | payer MEDICARE, SELFPAY ==
[2024-10-08 15:03] LABS: Hematocrit 36.8 % (36-47); Hemoglobin 12.10 g/dL (11.27-16.99); Mean Corpuscular HGB Conc 32.9 g/dL (30-55); Mean Corpuscular Hemoglobin 31.6 pg (27-33); Mean Corpuscular Volume 96.1 fl (85-98); Nucleated Red Blood Cells % 0 %; Platelet Count 129 10^3/cmm (157-399); Red Blood Count 3.83 10^6/uL (3.85-5.65); White Blood Count 5.38 10^3/uL (3.29-11.43)
[2024-10-08 15:18] LABS: Alanine Aminotransferase 17 U/L (0-33); Albumin Level 4.3 g/dL (3.5-5.2); Alkaline Phosphatase 32 U/L (35-105); Anion Gap 16.4 (5-19); Aspartate Amino Transferase 26 U/L (0-32); Blood Urea Nitrogen 23 mg/dL (8-23); Calcium 9.7 mg/dL (8.5-10.5); Carbon Dioxide 26 mmol/L (22-29); Chloride 99 mmol/L (98-107); Globulin 2.9 g/dL (1.3-4.6); Glucose 158 mg/dL (65-115); Osmolality Calculated 291 mOsm/kg (285-295); Potassium 4.4 mmol/L (3.5-5.1); Sodium 137 mmol/L (136-145); Total Protein 7.2 g/dL (6.6-8.7)
== END 2024-10-24 23:59 | disposition home or self-care (01) ==
LOC: ONCMED 11:29
PROVIDERS: PCP Family Medicine; Visit Provider Internal Medicine Medical Oncology
DX: C82.90 Follicular lymphoma, unspecified, unspecified site (principal)
CPT/HCPCS: 36415; 80053; 83615; 85025

== ENCOUNTER 2024-12-05 13:33 | Outpatient (CLI) | payer SELFPAY ==
[2024-12-05 14:22] LABS: HF Add Manual Diff No
[2024-12-05 14:28] LABS: Hematocrit 38.3 % (36-47); Hemoglobin 12.20 g/dL (11.27-16.99); Mean Corpuscular HGB Conc 31.9 g/dL (30-55); Mean Corpuscular Hemoglobin 31.6 pg (27-33); Mean Corpuscular Volume 99.2 fl (85-98); Nucleated Red Blood Cells % 0 %; Platelet Count 94 10^3/cmm (157-399); Red Blood Count 3.86 10^6/uL (3.85-5.65); White Blood Count 3.22 10^3/uL (3.29-11.43)
[2024-12-05 14:54] LABS: Estmated Average Glucose 134; Hemoglobin A1C 6.3 % (4.0-6.0)
[2024-12-05 15:17] LABS: Alanine Aminotransferase 39 U/L (0-33); Albumin Level 4.3 g/dL (3.5-5.2); Alkaline Phosphatase 35 U/L (35-105); Anion Gap 15.6 (5-19); Aspartate Amino Transferase 40 U/L (0-32); Blood Urea Nitrogen 23 mg/dL (8-23); Calcium 9.4 mg/dL (8.5-10.5); Carbon Dioxide 26 mmol/L (22-29); Chloride 101 mmol/L (98-107); Cholesterol 198 mg/dL (0-200); Globulin 2.7 g/dL (1.3-4.6); Glucose 89 mg/dL (65-115); HDL Cholesterol 51 mg/dL (60-100); Osmolality Calculated 289 mOsm/kg (285-295); Potassium 4.6 mmol/L (3.5-5.1); Sodium 138 mmol/L (136-145); Thyroid Stimulating Hormone 2.89 uIU/mL (0.27-4.20); Total Protein 7.0 g/dL (6.6-8.7); Triglycerides 180 mg/dL (0-150)
== END 2024-12-05 13:34 | disposition home or self-care (01) ==
PROVIDERS: PCP Family Medicine; Visit Provider Dermatology
DX: Z01.89 Encounter for other specified special examinations (principal)
CPT/HCPCS: 36415

== ENCOUNTER → 2024-12-23 08:26 | Outpatient (BNVA) | payer MEDICARE, SELFPAY | PROVIDERS: PCP Family Medicine; Visit Provider Nurse Practitioner Family | DX: L81.4 Other melanin hyperpigmentation (principal); L57.8 Other skin changes due to chronic exposure to nonionizing radiation; L82.1 Other seborrheic keratosis; L82.0 Inflamed seborrheic keratosis; R20.8 Other disturbances of skin sensation; L53.8 Other specified erythematous conditions; R58 Hemorrhage, not elsewhere classified; Z29.89 Encounter for other specified prophylactic measures; L27.0 Generalized skin eruption due to drugs and medicaments taken internally | CPT/HCPCS: 17000; 17110; 99214 ==

== ENCOUNTER 2025-02-13 09:28 | Outpatient (CLI) | payer MEDICARE, SELFPAY ==
--- NOTE | 2025-02-13 14:50 | MM_ITS ---
WS: [id number] BILATERAL SCREENING DIGITAL TOMOSYNTHESIS MAMMOGRAM WITH CAD HISTORY: ANNUAL SCREEN COMPARISON: 02/12/2024, 02/01/2023, 01/08/2021 Bilateral CC and MLO views with tomosynthesis and synthetic mammography submitted. Computer aided detection analyzed. Breast composition: There are scattered areas of fibroglandular density. No suspicious masses, microcalcifications or architectural distortion. Long-term stability 5 mm well-circumscribed mass upper outer quadrant LEFT breast. Benign calcifications LEFT breast. MM/MM scr BI tomosynthesis [id number] IMPRESSION: BI-RADS: 2 - Benign. FOLLOW UP: 1 Year Follow-up
== END 2025-02-13 09:29 | disposition home or self-care (01) ==
LOC: RAD 09:28
PROVIDERS: PCP Family Medicine; Visit Provider Family Medicine
DX: Z12.31 Encounter for screening mammogram for malignant neoplasm of breast (principal); R92.323 Mammographic fibroglandular density, bilateral breasts; N63.21 Unspecified lump in the left breast, upper outer quadrant; R92.1 Mammographic calcification found on diagnostic imaging of breast
CPT/HCPCS: 77063; 77067